=== PATIENT | male | born 1960 | race African-American/Black ===

== ENCOUNTER 2021-07-18 08:10 | Inpatient (IN) | payer MEDICAID, OTHER ==
[~2021-07-18] VITALS: Ht 182.9 cm; Wt 68.9 kg
[2021-07-18] MEDS ORDERED: PIPERACILLIN/TAZ 3.375G PREMIX 50 ML IV ONE (08:30)
[2021-07-18] MEDS ORDERED: VANCOMYCIN 1G PREMIX 200 ML IV ONE (08:30)
[2021-07-18] MEDS ORDERED: SODIUM CHLORIDE 0.9% 250 ML IV ONE (08:45)
[2021-07-18 08:51] LABS: HEMATOCRIT. 34.7 % (42.0-52.0); HEMOGLOBIN. 11.2 g/dL (14.0-18.0); MEAN CORPUSCULAR HEMOGLOBIN 27.2 pg (28.0-32.0); MEAN CORPUSCULAR VOLUME 84.3 fL (80.0-94.0); MEAN PLATELET VOLUME 6.4 fl (7.4-10.4); PLATELET 209 x1000/uL (130-400); RED BLOOD CELL COUNT 4.12 mill/uL (4.7-6.1); RED CELL DISTRIBUTION WIDTH 18.5 % (11.6-14.6)
[2021-07-18 09:01] LABS: INR 1.1
[2021-07-18 09:03] LABS: CHLORIDE 97 mEq/L (98-107)
[2021-07-18] MEDS ORDERED: VANCOMYCIN 1GM PMX (XELLIA) 200 ML IV NR (10:00)
[2021-07-18] MEDS ORDERED: PIPERACILLIN/TAZOBACTAM 3.375G in DEXT 5% WATER 50ML IV NR (10:00)
[2021-07-18] MEDS ORDERED: IOHEXOL-350 100 ML BOTTLE ONE (10:35)
[2021-07-18 10:36] LABS: PLATELET ESTIMATE NORMAL
[2021-07-18] MEDS ORDERED: ONDANSETRON HCL 4MG/2ML INJ IV PRN (11:00)
[2021-07-18] MEDS ORDERED: VANCOMYCIN 750MG PMX (XELLIA) 150 ML IV NR (12:00)
[2021-07-18] MEDS ORDERED: VANCOMYCIN 750MG PMX (XELLIA) 150 ML IV SCH (12:00)
[2021-07-18] MEDS ORDERED: LIDOCAINE HCL 1% 20ML VIAL (Pyxis) INJ ONE (12:17)
[2021-07-18] MEDS: ACETAMINOPHEN 325MG TABLET PO PRN ×2 (12:18→19:57)
[2021-07-18] MEDS: AMLODIPINE 10MG TABLET PO SCH (13:40)
[2021-07-18] MEDS ORDERED: PIPERACILLIN/TAZOBACTAM 3.375 G in DEXTROSE 5% WATER 50 ML IV SCH (21:00)
[2021-07-18] MEDS: CLONIDINE 0.1MG TABLET PO PRN (23:42)
[2021-07-19 00:30] VITALS: BP 139/65
[2021-07-19] MEDS: ACETAMINOPHEN 325MG TABLET PO PRN ×2 (04:17→14:15)
[2021-07-19 06:54] LABS: HEMATOCRIT. 36.5 % (42.0-52.0); HEMOGLOBIN. 11.5 g/dL (14.0-18.0); MEAN CORPUSCULAR HEMOGLOBIN 26.9 pg (28.0-32.0); PLATELET 146 x1000/uL (130-400); RED BLOOD CELL COUNT 4.29 mill/uL (4.7-6.1); RED CELL DISTRIBUTION WIDTH 19.4 % (11.6-14.6)
[2021-07-19 08:00] VITALS: BP 148/74
[2021-07-19] MEDS: AMLODIPINE 10MG TABLET PO SCH (10:14)
[2021-07-19] MEDS ORDERED: VANCOMYCIN 750MG PMX (XELLIA) 150 ML IV SCH (11:00)
[2021-07-19] MEDS ORDERED: PIPERACILLIN/TAZOBACTAM 3.375 G in DEXTROSE 5% WATER 50 ML IV SCH (11:30)
[2021-07-19 12:00] VITALS: BP 163/83
[2021-07-19] MEDS: TRAMADOL 50MG TABLET PO PRN ×2 (14:14→22:04)
[2021-07-19] MEDS: CLONIDINE 0.1MG TABLET PO PRN (14:14)
[2021-07-19 14:31] LABS: PLATELET ESTIMATE NORMAL
[2021-07-19 16:00] VITALS: BP 149/86
[2021-07-19] MEDS: PIPERACILLIN/TAZOBACTAM 3.375 G in DEXTROSE 5% WATER 50 ML IV SCH ×2 (17:54→22:04)
[2021-07-19 20:00] VITALS: BP 154/87
[2021-07-20] VITALS: BP 147/78
[2021-07-20 04:00] VITALS: BP 134/84
[2021-07-20 08:00] VITALS: BP 146/86
[2021-07-20] MEDS: PIPERACILLIN/TAZOBACTAM 3.375 G in DEXTROSE 5% WATER 50 ML IV SCH ×2 (09:53→20:55)
[2021-07-20] MEDS: TRAMADOL 50MG TABLET PO PRN ×2 (09:56→20:40)
[2021-07-20] MEDS: AMLODIPINE 10MG TABLET PO SCH (10:05)
[2021-07-20] MEDS ORDERED: VANCOMYCIN 500 MG in DEXT 5% WATER 100 ML IV SCH (11:00)
[2021-07-20 12:00] VITALS: BP 154/85
[2021-07-20 16:00] VITALS: BP 146/77
[2021-07-20 17:19] LABS: HEPATITIS B SURFACE ANTIGEN NEGATIVE
[2021-07-20 20:33] VITALS: BP 156/74
[2021-07-20] MEDS: ACETAMINOPHEN 325MG TABLET PO PRN (23:56)
[2021-07-21] VITALS: BP 155/76
[2021-07-21 04:00] VITALS: BP 156/79
[2021-07-21 07:53] VITALS: BP 156/74
[2021-07-21] MEDS: PIPERACILLIN/TAZOBACTAM 3.375 G in DEXTROSE 5% WATER 50 ML IV SCH (09:00)
[2021-07-21] MEDS: AMLODIPINE 10MG TABLET PO SCH (09:00)
[2021-07-21] MEDS ORDERED: METHYL SALICYLATE/MENTHOL CREAM 85GM TOP PRN (10:00)
[2021-07-21 12:00] VITALS: BP 138/72
[2021-07-21 14:28] VITALS: BP 138/72
[2021-07-21 16:00] VITALS: BP 155/78
[2021-07-21] MEDS: ACETAMINOPHEN 325MG TABLET PO PRN (16:06)
[2021-07-21] MEDS ORDERED: DICL100G31 TP (16:35)
[2021-07-21] MEDS ORDERED: POLY17PO19 PO (16:36)
[2021-07-21] MEDS ORDERED: CLON0.2T PO (16:36)
[2021-07-21] MEDS ORDERED: LOSA100T32 PO (16:37)
[2021-07-21] MEDS ORDERED: VITAMIND PO (16:39)
[2021-07-21] MEDS ORDERED: NIFE90TA60 PO (16:40)
[2021-07-21] MEDS ORDERED: POLY15DR31 EACHEYE (16:41)
[2021-07-21] MEDS ORDERED: [UNRECOGNIZED DRUG - OTHER] PO (16:41)
[2021-07-21] MEDS ORDERED: CARV25TA47 PO (16:42)
[2021-07-21] MEDS ORDERED: AMLO5TAB88 PO (16:42)
[2021-07-21] MEDS ORDERED: SEVE0.8P3 PO (16:43)
== END 2021-07-21 19:20 | disposition home or self-care (01) | DRG 720 ==
LOC: ER 08:10 → MICUSO 10:00 → EDBEDREQ 10:14 → EDBEDREQTM 10:14 → EDBEDREQSVC 10:14 → 7WST 23:24
PROVIDERS: ADMIT Internal Medicine; ATTEND Internal Medicine
PROC: 0JPT3XZ Removal of Tunneled Vascular Access Device from Trunk Subcutaneous Tissue and Fascia, Percutaneous Approach (ICD-10-PCS; 2021-07-18)
PROC: 05PYX3Z Removal of Infusion Device from Upper Vein, External Approach (ICD-10-PCS; 2021-07-18)
PROC: 5A1D70Z Performance of Urinary Filtration, Intermittent, Less than 6 Hours Per Day (ICD-10-PCS; principal; 2021-07-19)
PROC: 5A1D70Z Performance of Urinary Filtration, Intermittent, Less than 6 Hours Per Day (ICD-10-PCS; 2021-07-21)
DX: A41.9 Sepsis, unspecified organism (principal); E44.1 Mild protein-calorie malnutrition; I82.622 Acute embolism and thrombosis of deep veins of left upper extremity; I12.0 Hypertensive chronic kidney disease with stage 5 chronic kidney disease or end stage renal disease; E87.8 Other disorders of electrolyte and fluid balance, not elsewhere classified; E87.1 Hypo-osmolality and hyponatremia; Z20.822 Contact with and (suspected) exposure to COVID-19; E87.70 Fluid overload, unspecified; D64.9 Anemia, unspecified; N18.6 End stage renal disease; Z99.2 Dependence on renal dialysis; Z68.20 Body mass index [BMI] 20.0-20.9, adult
CPT/HCPCS: 36415; 36589; 71045; 71275; 80048; 80053; 80202; 83605; 84145; 84484; 85025; 86705; 86709; 86803; 87340; 87426; 93005; 99291; J2543; J3370; J3490; J7050; J7060; Q9967

== ENCOUNTER 2022-09-22 18:10 | Inpatient (IN) | payer OTHER ==
[~2022-09-22] VITALS: Ht 175.3 cm; Wt 90.3 kg
[~2022-09-22 18:10] MED LIST: AMLO5TAB88 PO; CARV25TA47 PO; CLON0.2T PO; DICL100G31 TP; LOSA100T33 PO; NIFE90TA60 PO; POLY15DR31 EACHEYE; POLY17PO19 PO; SEVE0.8P3 PO; VITAMIND PO; [UNRECOGNIZED DRUG - OTHER] PO
[2022-09-22 18:31] VITALS: O2SAT 100
[2022-09-22 19:29] LABS: BASOPHILS % 2.5 % (0.0-2.0); EOSINOPHILS % 5.3 % (0.0-5.0); HEMATOCRIT. 32.3 % (42.0-52.0); HEMOGLOBIN. 10.8 g/dL (14.0-18.0); LYMPHOCYTES % 22.8 % (20.0-50.0); MEAN CORPUSCULAR HEMOGLOBIN 31.7 pg (28.0-32.0); MEAN CORPUSCULAR VOLUME 95.1 fL (80.0-94.0); MONOCYTES % 11.9 % (2.0-8.0); NEUTROPHILS % 57.5 % (40.0-76.0); PLATELET 193 x1000/uL (130-400); RED CELL DISTRIBUTION WIDTH 16.3 % (11.6-14.6)
[2022-09-22 19:33] LABS: CHLORIDE 97 mEq/L (98-107)
[2022-09-23] VITALS (14 sets, daily range): BP systolic 128–168; BP diastolic 72–100; PULSE 63–84; RESP 13–20; TEMP 97.5–98.1
[2022-09-23] MEDS ORDERED: POLYETHYLENE GLYCOL 3350 (17GM) 1 DOSE PACK PO PRN (06:45)
[2022-09-23] MEDS ORDERED: CLONIDINE 0.2MG TABLET PO PRN (06:45)
[2022-09-23] MEDS: CARVEDILOL 12.5MG TABLET PO SCH ×2 (08:41→22:21)
[2022-09-23] MEDS: SEVELAMER CARBONATE 800 MG TABLET PO SCH ×3 (08:41→18:52)
[2022-09-23] MEDS: AMLODIPINE 5MG TABLET PO SCH ×2 (08:41→22:00)
[2022-09-23] MEDS ORDERED: NIFEDIPINE XL 90MG TAB PO SCH (09:00)
[2022-09-23] MEDS ORDERED: CHOLECALCIFEROL (D3) 1000 UNIT TABLET PO SCH (09:00)
[2022-09-23] MEDS ORDERED: LOSARTAN POTASSIUM 100 MG TABLET PO SCH (12:00)
[2022-09-23 15:00] LABS: HEPATITIS B SURFACE ANTIGEN NEGATIVE
[2022-09-24] MEDS: SEVELAMER CARBONATE 800 MG TABLET PO SCH (06:18)
== END 2022-09-24 06:30 | disposition home or self-care (01) | DRG 425 ==
LOC: ER 18:19 → EDBEDREQ 09-23 03:18 → EDBEDREQTM 09-23 03:18 → MICUSO 09-23 03:48 → 3WST 09-23 05:18
PROVIDERS: ADMIT Internal Medicine; ATTEND Internal Medicine
PROC: 5A1D70Z Performance of Urinary Filtration, Intermittent, Less than 6 Hours Per Day (ICD-10-PCS; principal; 2022-09-23)
DX: E87.5 Hyperkalemia (principal); I12.0 Hypertensive chronic kidney disease with stage 5 chronic kidney disease or end stage renal disease; E11.22 Type 2 diabetes mellitus with diabetic chronic kidney disease; D63.1 Anemia in chronic kidney disease; E87.1 Hypo-osmolality and hyponatremia; D72.819 Decreased white blood cell count, unspecified; N18.6 End stage renal disease; E87.70 Fluid overload, unspecified; J44.9 Chronic obstructive pulmonary disease, unspecified; Z99.2 Dependence on renal dialysis; Z59.00 Homelessness unspecified
CPT/HCPCS: 36415; 80053; 85025; 86705; 86709; 86803; 87340; 90935; 93005; 99285